=== PATIENT | male | born 1990 | race Caucasian/White ===

== ENCOUNTER → 2023-12-01 06:49 | Outpatient (REF) | payer OTHER, SELFPAY | LOC: HWRAD 06:49 | PROVIDERS: ATTENDING PHYSICIAN Student in an Organized Health Care Education/Training Program | DX: R10.31 Right lower quadrant pain (principal) | CPT/HCPCS: 76882 ==

== ENCOUNTER → 2023-12-20 09:13 | Outpatient (REF) | payer OTHER, SELFPAY | LOC: HWRAD 09:13 | PROVIDERS: ATTENDING PHYSICIAN Family Medicine | DX: R10.31 Right lower quadrant pain (principal) | CPT/HCPCS: 74177; Q9967 ==

== ENCOUNTER 2024-04-13 06:34 | Day surgery (SDC) | payer OTHER, SELFPAY ==
[2024-04-13] VITALS (10 sets, daily range): BP systolic 118–139; BP diastolic 69–81; BMI 26.5
[2024-04-13] MEDS: TYLENOL 1000 MG PO (09:15)
== END 2024-04-13 14:57 | disposition home or self-care (01) ==
LOC: SDS 06:34
PROVIDERS: ATTENDING PHYSICIAN Surgery
DX: K40.90 Unilateral inguinal hernia, without obstruction or gangrene, not specified as recurrent (principal)
CPT/HCPCS: 49650; C1781